=== PATIENT | male | born 1960 | race Caucasian/White ===

== ENCOUNTER 2021-09-21 09:08 | Outpatient (CLI) | payer OTHER ==
[2021-09-21] MEDS ORDERED: GADOBUTROL 10 MMOL/10 ML VIAL ONE (09:43)
--- NOTE | 2021-09-21 12:11 | MRI Report ---
PROCEDURE: Brain W/WO INDICATIONS: DISORDER OF PITUITARY GLAND CONTRAST: IV CONTRAST: Gadavist ml: 8.9 TECHNIQUE: Noncontrast sagittal and axial FLAIR, axial gradient echo, axial diffusion and ADC through the brain. Thin-slice sagittal and coronal T1 spin echo, coronal T2 fast spin echo through the pituitary. Aft er the administration contrast, optional dynamic coronal T1 spin echo, thin-slice coronal and sagitta l T1 spin echo images through the pituitary fossa; axial T1 spin echo with fat saturation through the brain. COMPARISON: None. FINDINGS: Image quality: Excellent. Pituitary Gland: Pituitary gland is normal in size and contour. Posterior pituitary is normally situ ated. No sellar or suprasellar masses identified. Pituitary infundibulum is midline. Pituitary gland demonstrates normal postcontrast enhancement with no areas of delayed/diminished enhancement. Pituita ry infundibulum demonstrates normal enhancement in thickness. The optic chiasm is normal. Cavernous s inus demonstrate normal postcontrast enhancement. CSF Spaces: Ventricles are normal in size and shape. Basal cisterns are patent. No extra-axial flu id collections. Brain: No intracranial bleeds or mass effects. No abnormal intracranial enhancement. There is mild , diffuse cerebral volume loss. There are minimal periventricular and subcortical white matter chroni c microvascular ischemic changes. Madsen-white matter interface is intact. Diffusion weighted images d emonstrate no acute ischemic insults. Brainstem is normal. No GRE weighted abnormalities identified in the brain parenchyma. Normal intravascular flow voids are present. Skull and face: Calvarial marrow is normal in signal. Orbits appear normal. Sinuses: Sinuses and mastoids are clear. IMPRESSION: 1. No evidence of pituitary microadenoma. 2. No acute intracranial disease process. 3. No abnormal intracranial mass or suspicious postcontrast enhancement. 4. Mild, diffuse cerebral volume loss. 5. Minimal periventricular and subcortical white matter chronic microvascular ischemic changes. Reviewed by: Cathy Meyers MD, PhD on 09/21/2021 12:10 PM PST Approved by: Cathy Meyers MD, PhD on 09/21/2021 12:10 PM PST Station ID: [id number]
[2021-09-21] MEDS ORDERED: GADOBUTROL 10 MMOL/10 ML VIAL IVP ONE (14:15)
== END 2021-09-21 09:09 | disposition home or self-care (01) ==
LOC: DI 09:08
PROVIDERS: ATTEND Student in an Organized Health Care Education/Training Program
DX: E23.7 Disorder of pituitary gland, unspecified (principal)
CPT/HCPCS: 70553; A9585